=== PATIENT | male | born 1960 | race Caucasian/White ===

== ENCOUNTER 2016-11-16 08:17 | Emergency (ER) | payer OTHER ==
[~2016-11-16 08:17] MED LIST: ADV250INH INHALATION; ALBU8.5H2 INHALATION; CYAN250010 PO; FURO40TA4 PO; GLIP5TAB26 PO; INSU100V7 SUBQ; IPRA3AMP NEB; LACT10SO60 PO; NDL40T PO; PROM12.510 PO; RANI150C4 PO; SPIR25TA PO
[2016-11-16 08:35] VITALS: BP 154/97; PULSE 66; RESP 14; O2SAT 97
--- NOTE | 2016-11-16 09:01 | ED.REPORT ---
HPI-General Illness Date of Service Nov 16, 2016 ED Provider: Jack Diego MD 56 year old male with a history of cirrhosis, chronic back pain, and previously documented drug-seeking behavior presents to the ER complaining of left side chest wall pain rated 10/10 in severity secondary to fall down stairs at his home three days ago. He claims to be allergic to NSAIDS, Tylenol and codeine, and is requesting pain medication. Patient is not a very cooperative historian, making it difficult to obtain a complete history. Nursing Notes Stated Complaint: LEFT CRACKED RIBS Chief Complaint: Male Abdominal Pain Nursing Notes Reviewed: Yes Allergies: Coded Allergies: acetaminophen (Verified Allergy, Severe, LIVER PROBLEMS, 11/16/16) LIVER PATHOLOGY codeine (Verified Allergy, Severe, LIVER DAMAGE, 11/16/16) tramadol (Verified Allergy, Severe, LIVER PROBLEMS, 11/16/16) LIVER PATHOLOGY aspirin (Verified Allergy, Intermediate, LIVER DAMAGE, 11/16/16) milk (Verified Allergy, Intermediate, LACTOSE INTOLERANCE, 10/20/16) morphine (Verified Allergy, Intermediate, upset stomach, 10/20/16) NSAIDS (Non-Steroidal Anti-Inflamma (Verified Allergy, Unknown, 10/20/16) Scheduled Albuterol HFA (Proair HFA) 8.5 Gm Hfa.aer.ad 2 PUFFS INHALATION Q4H Cyanocobalamin (Vitamin B-12) (Vitamin B12) 2,500 Mcg Tablet 2,500 MCG PO DAILY Fluticasone/Salmeterol (Advair 250-50 Diskus) 60 Puff/Inh Disk 1 PUFF INHALATION BID Furosemide (Furosemide) 40 Mg Tablet 40 MG PO DAILY Glipizide ER (Glipizide ER) 5 Mg Tab.er.24 5 MG PO BID Insulin Glargine (Lantus U100 Insulin Vial) 100 Unit/Ml Vial 30 UNIT SUBQ MORNING Ipratropium/Albuterol Sulfate (Iprat-Albut 0.5-3(2.5) mg/3 mL Inhalant Soln) 3 Ml Ampul.neb 3 ML NEB Q4HWA Lactulose (Lactulose) 20 Gm/30 Ml Solution 20 GM PO BID Lidocaine (Lidoderm) 700 Mg Adh..patch 1 PATCH TP UD Nadolol (Corgard) 40 Mg Tab 20 MG PO DAILY Ranitidine (Ranitidine) 150 Mg Capsule 150 MG PO MORNING Spironolactone (Aldactone) 25 Mg Tablet 100 MG PO DAILY Scheduled PRN Promethazine (Promethazine) 12.5 Mg Tablet 1-2 TABLET PO [id number] PRN PRN For Nausea General Time Seen by MD: 08:58 Chief Complaint Other (Chest Wall Pain) Hx Obtained From: Patient Arrived By: Walk-in Sudden in Onset?: Yes Onset Occurred: 3 days ago Symptom Duration: Since onset Caused by: Accidental, Fall down stairs Context: Occurred at: Home injury Location: : Chest Quality: Painful Severity: Current: Pain level 10 out of 10 Severity: Maximum: Pain level 10 out of 10 Past Medical History Past Medical History Notes: GI: Dr. Mitchell Past Medical History Cirrhosis of the liver, history of chronic recurrent ascites and bleeding esophageal varices. Experienced gynecomastia with spironolactone. Chronic active hepatitis C viral infection. Antiviral therapy 2014. History of alcoholism, sober since 2007. Insulin dependent ype 2 diabetes. No known retinal, renal or vascular disease. Foot symptoms may be neuropathy. GERD Hypertension. Mild COPD. History of smoking, on average one pack a day for 35 years, now stopped. Opioid dependent back pain Past Surgical History multiple paracenteses (7x in the past 4 months as of 06/16/2016) Family History noncontributory Smoking History Former Smoker Social History Last drink in 2007 Alcohol Use: In recovery Drug Use: THC Other Social History: Lives with parents, Local resident Ambulatory Status Independent Review of Systems Full Review of Systems Musculoskeletal: Reports: Thoracic pain (Left Chest Wall), Denies: Back pain, Extremity pain, Joint pain, Lumbar pain Complete sys rev & neg: except as marked. Physical Exam Vital Signs Vital Signs Date Time Temp Pulse Resp B/P Pulse Ox O2 Delivery O2 Flow Rate FiO2 11/16/16 08:35 36.3 66 14 154/97 97 Room Air Initial VS: Reviewed General/Constitutional: Well-developed, Well-nourished Head / Eyes: Atraumatic, Normocephalic Neck: Supple, Non-tender, Full range of motion Cardiovascular: Regular rate & rhythm, Heart sounds normal, Intact distal pulses Extremities: Vascular intact, Neuro intact, No swelling, No tenderness Skin: Warm, Dry, No cyanosis Neurologic: Alert, Oriented, Nonfocal Psychiatric: Mood/affect normal, Behavior normal, Normal thought content Respiratory / Chest: Breath sounds NL, No respiratory distress, No rales, No rhonchi, No wheezing 1cm areas of ecchymosis about the left lateral chest wall Interpretation & Diagnostics Lab Results Interpretation Test 11/16/16 09:45 Hold Purple Top Tube Received (Received) Hold Blue Top Tube Received (Received) Hold [place] Top Tube Received (Received) X-Ray Chest Interpretation Chest Xray Interpretation: IMPRESSION: 1. No displaced fracture of the visualized ribs. 2. No pleural effusion or pneumothorax. Dictated by: Guru Yoo M.D. on 11/16/2016 at 9:53 Approved by: Guru Yoo M.D. on 11/16/2016 at 9:56 View: AP & lat Interpretation / Wet Read by: Interpret - Radiologist Re-Eval/Medical Decision Med Decision/Clinical Course 56 year old male with a history of cirrhosis, chronic back pain, and previously documented drug-seeking behavior presents to the ER complaining of left side chest wall pain rated 10/10 in severity secondary to fall down stairs at his home three days ago. He claims to be allergic to NSAIDS, Tylenol and codeine, and is requesting pain medication. Patient is not a very cooperative historian, making it difficult to obtain a complete history. Here in the emergency department the patient is slightly hypertensive though otherwise afebrile with stable vital signs and in no apparent distress. He is breathing with ease. Examination reveals very small region of resolving ecchymosis about his left lateral chest wall without any palpable deformity, crepitance or significant trauma. CXR: Obtained, reviewed and interpreted by myself shows no evidence of acute infiltrates, effusions or pneumothorax. Cardiac and mediastinal silhouette normal. No bony or soft tissue abnormalities. I offered the patient management of his pain however he stated that he was unable to take NSAIDs or Tylenol due to allergy. At this time, without further objective evidence of significant injury I am reluctant to administer narcotic pain medications. I expressed this to the patient and explained my reasoning. He was provided with an ice pack and prescription for Lidoderm patches. He was advised to avoid prolonged bedrest and ambulate/take deep breaths. Follow-up and return precautions were reviewed in detail and he was discharged in good condition. Full survey revealed no evidence of other associated acute injury. Source of Hx: Old records Time of Eval: 10:36 Re-Evaluation/Progress Note: Discussed radiology results and plan to discharge. Patient is amenable to the plan. Return precautions given. All other questions addressed. Counseled Regarding: Diagnosis, Need for follow-up, When/why to return to ED Discharge & Departure Primary Impression: Chest wall pain Additional Impressions: Opiate dependence Substance use status: with unspecified opioid-induced disorder Qualified Code : F11.29 - Opioid dependence with unspecified opioid-induced disorder Superficial bruising of chest wall Encounter type: initial encounter Laterality: left Qualified Code: S20.212A - Contusion of left front wall of thorax, initial encounter Fall from ground level Disposition: Home Discharge Condition All VS Reviewed: Yes Condition: Stable Additional Instructions: Thank you for seeking care at emergency room. It is difficult for us to make definitive diagnoses in the ED but we believe that you are experiencing left chest wall pain due to your fall. Our primary goal today in the ED was to evaluate you for any life-threatening conditions. Your evaluation was reassuring. You will be discharged with a prescription for lidocaine patches. Please use these 12 hours on, 12 hours off. Stay active as tolerated. Take care when getting out of bed and standing. You should follow-up with your primary doctor this week. You should return to the ED immediately if you develop worsening pain, shortness of breath, fever, chills, or any other concerning signs or symptoms. Thank you for letting us partake in your care today. Referrals: Susanne Alexander MD (PCP) Jacy Attestation Portions of this note were transcribed by Diane Wilkinson. I, Dr. Diego, personally performed the history, physical exam and medical decision-making; I reviewed and confirmed the accuracy of the information in the transcribed note. Signed by: Jacy Pradhan, 11/16/2016 and 10:38 copies to: Susanne Alexander MD, Beck O MD Nov 16, 2016 09:01 DIANE WILKINSON Nov 16, 2016 10:24
--- NOTE | 2016-11-16 09:57 | DRSVH ---
PROCEDURE: X-RAY CHEST, TWO VIEWS ([id number]) INDICATIONS: rib pain L TECHNIQUE: 2 views of the chest were acquired. COMPARISON: Merged With [facility], CR, XR CHEST 2VW, 08/19/2016, 13:42. FINDINGS: Surgical changes and devices: None. Lungs and pleura: No pleural effusions or pneumothorax. Lungs are clear. Mediastinum: Mediastinal contours are normal. Heart size is normal. Bones and chest wall: No displaced fracture of the visualized ribs. Soft tissues appear unremarkabl e. IMPRESSION: 1. No displaced fracture of the visualized ribs. 2. No pleural effusion or pneumothorax. Dictated by: Guru Yoo M.D. on 11/16/2016 at 9:53 Approved by: Guru Yoo M.D. on 11/16/2016 at 9:56
[2016-11-16] MEDS ORDERED: LIDO700A6 TP (10:37)
[2016-12-15] MEDS ORDERED: LISI-567 PO (08:05)
[2016-12-15] MEDS ORDERED: MULT1CAP33 PO (08:05)
== END 2016-11-16 10:49 | disposition home or self-care (01) ==
LOC: SED 08:17
DX: S20.212A Contusion of left front wall of thorax, initial encounter (principal); W10.9XXA Fall (on) (from) unspecified stairs and steps, initial encounter; Y93.89 Activity, other specified; Y92.009 Unspecified place in unspecified non-institutional (private) residence as the place of occurrence of the external cause; Y99.8 Other external cause status; F11.20 Opioid dependence, uncomplicated; I10 Essential (primary) hypertension; J44.9 Chronic obstructive pulmonary disease, unspecified; K21.9 Gastro-esophageal reflux disease without esophagitis; E11.9 Type 2 diabetes mellitus without complications; Z79.4 Long term (current) use of insulin; Z87.891 Personal history of nicotine dependence; Z88.5 Allergy status to narcotic agent; Z88.8 Allergy status to other drugs, medicaments and biological substances; Z91.018 Allergy to other foods